=== PATIENT | female | born 1945 | race Caucasian/White ===

== ENCOUNTER 2022-02-13 19:05 | Emergency (ER) | payer MEDICARE, SELFPAY ==
[2022-02-13 19:20] VITALS: BP 152/59; PULSE 72; RESP 18; TEMP 36.8; O2SAT 99
--- NOTE | 2022-02-13 19:49 | ED.GENADULT ---
HPI - General Adult General Chief complaint: Upper Respiratory Infection Stated complaint: Sore Throat Time Seen by Provider: 02/13/22 19:49 Source: patient, RN notes reviewed and old records reviewed Mode of arrival: ambulatory Limitations: no limitations History of Present Illness HPI narrative: 76-year-old female presents to the [facility] with complaints of a sore throat. States that she is traveling with [employer]. States that her throat feels inflamed. She occasionally gets this when she has change of weather and her doctor gives her a steroid shot. Denies any fevers. No drooling. Denies chest pain or abdominal pain. Related Data Home Medications Medication Instructions Recorded Confirmed cetirizine 10 mg tablet 10 mg PO DAILY 02/13/22 02/13/22 esomeprazole magnesium 40 mg 40 mg PO DAILY 02/13/22 02/13/22 capsule,delayed release gabapentin 300 mg capsule 300 mg PO DIRECTED 02/13/22 02/13/22 lisinopril 10 mg tablet 10 mg PO DAILY 02/13/22 02/13/22 metformin 500 mg tablet 500 mg PO DIRECTED 02/13/22 02/13/22 Allergies Allergy/AdvReac Type Severity Reaction Status Date / Time No Known Allergies Allergy Verified 02/13/22 20:05 Review of Systems Review of Systems: All systems reviewed & are unremarkable except as noted in HPI and below Constitutional: Constitutional: Reports no additional constitutional complaints, Denies chills and Denies fever(s) Eyes: Eyes: Reports no additional eye complaints ENT: Reports as per HPI and Reports sore throat Cardiovascular: Cardiovascular: Reports no additional cardiovascular complaints Respiratory: Respiratory: Reports no additional respiratory complaints Gastrointestinal: Gastrointestinal: Reports no additional gastrointestinal complaints Musculoskeletal: Musculoskeletal: Reports no additional musculoskeletal complaints Integumentary/Breasts: Skin/Breast: Reports system reviewed and no additional complaints, except as docu Neurologic: Reports system reviewed and no additional complaints, except as documented Psychiatric: Psychiatric: Reports no additional psychiatric complaints Allergic/Immunologic: Allergic/Immunologic: Reports no additional allergic/immunologic complaints PMFSH Comments At the time of my signature, I reviewed and agree with the nursing past medical, surgical, social, and family history. There is no relevant family history pertinent to the patient complaint. Exam Const: General: healthy appearing, comfortable, no acute distress, well developed, alert and well nourished Nutritional Appearance: well nourished Orientation/consciousness: patient oriented x3 Limitations: no limitations HENMT: Head: normal to inspection Ears: external ears normal, TM's normal bilaterally and EAC's normal Face/Nose/Sinus: Normal external nose present and Normal nares present Face and sinus: normal facial exam and face symmetric Mouth: Yes Normal oral and palatal mucosa present, Yes lip normal and Yes moist mucous membranes Throat: uvula midline, posterior oropharynx abnormal erythema and no uvular edema Eyes: General: appearance normal, both eyes and all related structures Pupils: Equal, round and reactive pupils present Neck: Neck: normal visual inspection, full ROM, no lymphadenopathy and no meningeal signs Chest: Chest palpation & inspection: normal inspection of the chest Resp: Effort & Inspection: normal respiratory effort and no use of accessory muscles Auscultation: clear to auscultation bilaterally, no crackles, no rales, no rhonchi and no wheezes Cardio: Rate: regular rate Rhythm: regular rhythm Back/Spine/Pelvis: Cervical Spine: cervical ROM normal and No Cervical spine tenderness Thoracic/Lumbar Spine: thoracic and lumbar spine normal to inspection and thoraco-lumbar ROM normal Skin: General skin exam: normal color Rashes: no rashes Wounds: no wounds Neuro: General: patient oriented x3, moves all extremities, no meningeal signs and no fo
[2022-02-13] MEDS: TRIAMCINOLONE ACET INJ 40 MG/ML VIAL IM (20:14)
== END 2022-02-13 20:35 | disposition home or self-care (01) ==
PROVIDERS: Emergency Provider Nurse Practitioner
DX: J02.8 Acute pharyngitis due to other specified organisms (principal); E78.00 Pure hypercholesterolemia, unspecified; I10 Essential (primary) hypertension; K21.9 Gastro-esophageal reflux disease without esophagitis; E11.40 Type 2 diabetes mellitus with diabetic neuropathy, unspecified; Z86.16 Personal history of COVID-19
CPT/HCPCS: 87081; 87804; 87880; 96372; 99203; G0463; J3301

== ENCOUNTER 2022-02-18 15:49 | Emergency (ER) | payer MEDICARE, SELFPAY ==
[2022-02-18 15:58] VITALS: BP 131/68; PULSE 93; RESP 16; TEMP 36.1; O2SAT 100
--- NOTE | 2022-02-18 15:58 | ED.URI ---
HPI - URI/Sore Throat General Chief Complaint: Upper Respiratory Infection Stated Complaint: Sore Throat, Cough Time Seen by Provider: 02/18/22 15:59 Source: patient Mode of arrival: ambulatory Limitations: no limitations History of Present Illness HPI Narrative: 76-year-old female presents with complaint of sinus congestion, runny nose, postnasal drainage, sore throat, mild dry cough for approximately 2 weeks. Reports that she was seen at [facility] 1 week ago with similar complaints and was given a steroid shot that only helped her for 2 days and then she began to feel bad again. Patient reports that she is traveling here from [place], works for fever, and has these symptoms with weather changes. Is taking Zyrtec daily. All systems reviewed and negative except as noted above. Related Data Home Medications Medication Instructions Recorded Confirmed cetirizine 10 mg tablet 10 mg PO DAILY 02/13/22 02/18/22 esomeprazole magnesium 40 mg 40 mg PO DAILY 02/13/22 02/18/22 capsule,delayed release gabapentin 300 mg capsule 300 mg PO DIRECTED 02/13/22 02/18/22 lisinopril 10 mg tablet 10 mg PO DAILY 02/13/22 02/18/22 metformin 500 mg tablet 500 mg PO DIRECTED 02/13/22 02/18/22 Allergies Allergy/AdvReac Type Severity Reaction Status Date / Time No Known Allergies Allergy Verified 02/18/22 15:51 Review of Systems Review of Systems: CONSTITUTIONAL: Denies fever, chills, or sweats. EYES: Denies visual changes, redness, or discharge. ENT: Reports rhinorrhea, congestion, sore throat. Denies otalgia. CARDIOVASCULAR: Denies chest pain, palpitations, or edema. RESPIRATORY: reports cough. Denies dyspnea. GASTROINTESTINAL: Denies abdominal pain, nausea, vomiting, or diarrhea. GENITOURINARY: Denies dysuria or hematuria. SKIN: Denies rash or itching. MUSCULOSKELETAL: Denies back pain, joint pain, or myalgia. NEUROLOGIC: Denies headache, numbness, or weakness. PSYCHIATRIC: Denies anxiety or depression. All other systems reviewed are negative, except as documented in HPI. PMFSH Comments At time of signature, agree with nursing past medical, surgical, social and family history. There is no relevant family history pertinent to the presenting complaint. Exam Narrative: GENERAL: This is a well-nourished, well-developed patient, in no apparent distress. HEAD: normocephalic, atraumatic. EYES: PERRL. Sclera clear/white. Vision is grossly intact. EARS: External ears normal, auditory canals clear and without drainage, fluid bilateral TMs without erythema or perforation. NOSE: External nose normal with Yellow nasal drainage, moderate congestion, bilateral maxillary sinus tenderness. Erythema and swelling to both nares. THROAT: Mucous membranes moist, Mild erythema to posterior pharynx with clear postnasal drainage. NECK: Neck supple, non-tender without lymphadenopathy, masses or thyromegaly. CARDIOVASCULAR: Regular rate and rhythm without murmurs, gallops, or rubs. RESPIRATORY: Clear to auscultation. Breath sounds equal bilaterally. No wheezes, rales, or rhonchi. SKIN: warm, Dry, intact with no suspicious lesions or rash, good texture and turgor. NEURO: awake, alert, and oriented to person, place and time. There were no obvious focal neurologic abnormalities. EXTREMITIES: No joint tenderness, effusion, or edema noted. Course Course Level of Care: Express Care Visit Vital Signs Vital signs: Vital Signs Temperature 36.1 C L 02/18/22 15:58 Pulse Rate 93 02/18/22 15:58 Respiratory Rate 16 02/18/22 15:58 Blood Pressure 131/68 02/18/22 15:58 Pulse Oximetry 100 02/18/22 15:58 Temperature 36.1 C L 02/18/22 15:58 Pulse Rate 93 02/18/22 15:58 Respiratory Rate 16 02/18/22 15:58 Blood Pressure 131/68 02/18/22 15:58 Pulse Oximetry 100 02/18/22 15:58 Review MDM - URI/Sore Throat MDM Narrative Medical decision making narrative: Patient is aware of diagnosis, understands and agrees t
== END 2022-02-18 16:15 | disposition home or self-care (01) ==
PROVIDERS: Emergency Provider Nurse Practitioner Family
DX: J01.90 Acute sinusitis, unspecified (principal); E78.00 Pure hypercholesterolemia, unspecified; I10 Essential (primary) hypertension; K21.9 Gastro-esophageal reflux disease without esophagitis; E11.9 Type 2 diabetes mellitus without complications; G62.9 Polyneuropathy, unspecified
CPT/HCPCS: 99213; G0463